=== PATIENT | male | born 1960 | race Caucasian/White ===

== ENCOUNTER 2021-07-05 15:45 | Emergency (ER) | payer OTHER ==
[~2021-07-05] VITALS: Ht 170.2 cm; Wt 72.6 kg
[~2021-07-05 15:45] MED LIST: LAMISIL250 MG PO
[2021-07-05] MEDS ORDERED: LEVSIN/SL0.125 MG SL (21:13)
== END 2021-07-05 22:30 | disposition home or self-care (01) ==
LOC: ER 15:45
DX: R10.9 Unspecified abdominal pain (principal)